=== PATIENT | male | born 2000 | race Caucasian/White ===

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

== ENCOUNTER 2020-11-21 19:46 | Emergency (ER) | payer OTHER ==
[~2020-11-21] VITALS: Ht 185.4 cm; Wt 68.0 kg
[2020-11-21 20:30] VITALS: BP 127/79
[2020-11-21] MEDS ORDERED: IBU600 MG PO (21:17)
[2020-11-21] MEDS ORDERED: NORCO7.5 PO (21:18)
== END 2020-11-21 21:56 | disposition home or self-care (01) ==
LOC: ER 19:46
DX: S92.414A Nondisplaced fracture of proximal phalanx of right great toe, initial encounter for closed fracture (principal); W22.8XXA Striking against or struck by other objects, initial encounter; Y93.89 Activity, other specified; Y92.89 Other specified places as the place of occurrence of the external cause; Y99.8 Other external cause status